=== PATIENT | female | born 1990 | race African-American/Black ===

== ENCOUNTER 2017-11-03 02:52 | Emergency (ER) | payer OTHER ==
[2017-11-03] MEDS ORDERED: SODIUM CHLORIDE 0.9% 500 ML INFUS.BAG IV ONE (03:09)
[2017-11-03 03:23] VITALS: TEMP 97.4; BMI 27.3
[2017-11-03 03:40] LABS: BASO % 0.7 % (0-2.0); EOS % 1.2 % (0-4.5); HEMATOCRIT 35.5 % (32.4-45.2); HEMOGLOBIN 11.7 GM/dL (10.7-15.3); LYMPH % 29.8 % (8-40); MCH 27.5 pg (25.7-33.7); MCHC 33.1 g/dl (32.0-36.0); MEAN CELL VOLUME 83.1 fl (80-96); NEUT % 59.3 % (42.8-82.8); PLATELET COUNT 284 K/MM3 (134-434); RBC 4.28 M/mm3 (3.60-5.2); RDW 15.1 % (11.6-15.6); WHITE BLOOD COUNT 9.8 K/mm3 (4.0-10.0)
[2017-11-03 04:37] LABS: COCAINE, UR NEGATIVE ng/ml (CUTOFF=300); METHADONE, UR NEGATIVE ng/ml (CUTOFF=300); OPIATES, URI NEGATIVE ng/ml (CUTOFF=300); PHENCYCLIDINE,URINE NEGATIVE ng/ml (CUTOFF=25); URINE AMPHETAMINES NEGATIVE ng/ml (CUTOFF=500); URINE BARBITURATES NEGATIVE ng/ml (CUTOFF=200); URINE BENZODIAZEPINES NEGATIVE ng/ml (CUTOFF=200)
[2017-11-03 04:47] LABS: ALBUMIN 3.8 g/dl (3.4-5.0); ALK PHOS 57 U/L (45-117); ANION GAP 13 (8-16); BILIRUBIN,TOTAL 0.3 mg/dL (0.2-1.0); BLOOD UREA NITROGEN 12 mg/dL (7-18); CALCIUM 8.9 mg/dL (8.5-10.1); CHLORIDE 106 mmol/L (98-107); CO2 23 mmol/L (21-32); CREATININE 1.1 mg/dL (0.55-1.02); GLUCOSE,RANDOM 107 mg/dL (74-106); POTASSIUM 3.4 mmol/L (3.5-5.1); SGOT/AST 16 U/L (15-37); SGPT/ALT 16 U/L (12-78); SODIUM 142 mmol/L (136-145); TOT PROT 7.3 g/dl (6.4-8.2)
[2017-11-03] MEDS ORDERED: MECLIZINE HCL 25 MG TABLET (FP) PO ONE (05:19)
[2017-11-03] MEDS ORDERED: POTASSIUM CHLORIDE TABS 20 MEQ TABLET.ER (FP) PO ONE (05:19)
[2017-11-03] MEDS ORDERED: FOLIC ACID INJECTION - 1 MG, THIAMINE HCL 100 MG, MULTIVIT INJECTION ADULT 10 ML in SOD... IVPB ONE (05:19)
--- NOTE | 2017-11-03 05:39 | PDOC ---
History of Present Illness - General Chief Complaint: Substance Abuse Stated Complaint: INGESTION OF FOREIGN SUBSTANCE Time Seen by Provider: 11/03/17 02:59 - History of Present Illness Initial Comments: 11/03/17 05:20 CHIEF COMPLAINT: marijuana intoxication HISTORY OF PRESENT ILLNESS: 27 yo F with no significant PMH BIBEMS s/p ingestion of marijuana brownies. Patient reports that she ate 2 brownies that her friend said "had THC in them." Per mother, patient was at home and called out that "she might need some help." Mother states when she went to the patient , the patient was responsive but drowsy "and she kept falling asleep so I called the ambulance." On arrival patient is A&O x 3 and reports "just feeling lightheaded." She denies any current nausea but does report that she " No recent travel or sick contacts. PAST MEDICAL HISTORY: Denies past medical history FAMILY HISTORY: Denies SOCIAL HISTORY: "I smoked marijuana once before, a long time ago, and ate it today." Denies tobacco, alcohol use. SURGICAL HISTORY: Denies ALLERGIES: No known drug allergies REVIEW OF SYSTEMS General/Constitutional: Denies fever or chills. Denies weakness, weight change. HEENT: Denies change in vision. Denies ear pain or discharge. Denies sore throat. Cardiovascular: Denies chest pain or shortness of breath. Respiratory: Denies cough, wheezing, or hemoptysis. Gastrointestinal: Nausea and vomiting earlier, now resolved. Denies diarrhea or constipation. Genitourinary: Denies dysuria, frequency, or change in urination. Musculoskeletal: Denies joint or muscle swelling or pain. Denies neck or back pain. Skin and breasts: Denies rash or easy bruising. Neurologic: "I feel lightheaded." Denies headache, vertigo, loss of consciousness, or loss of sensation. PHYSICAL EXAM General Appearance: Well-appearing, appropriately dressed. No apparent distress HEENT: EOMI, PERRLA, normal ENT inspection, normal voice, TMs normal, pharynx normal. No conjunctival pallor. No photophobia, scleral icterus. Respiratory/Chest: Lungs CTAB. Cardiovascular: RRR. S1, S2. Gastrointestinal/Abdominal: Normal bowel sounds. Abdomen soft, non-distended. No tenderness or rebound tenderness. No organomegaly, pulsatile mass, guarding , hernia, hepatomegaly, splenomegaly. Musculoskeletal/Extremities: Normal inspection. FROM of all extremities, normal capillary refill. Pelvis Stable. No CVA tenderness. No tenderness to extremities, pedal edema, swelling, erythema or deformity. Integumentary: Appropriate color, dry, warm. No cyanosis, erythema, jaundice or rash Neurologic: certified addiction counselor II-XII intact. Fully oriented, alert. Appropriate mood/affect. Motor strength 5/5. No appreciable EOM palsy, facial droop or sensory deficit. Past History - Past Medical History Allergies/Adverse Reactions: Allergies Allergy/AdvReac Type Severity Reaction Status Date / Time No Known Allergies Allergy Verified 11/03/17 03:00 Home Medications: Ambulatory Orders Ondansetron [Zofran *Odt*] 8 mg SL BID PRN #10 od.tablet 11/03/17 COPD: No - Immunization History Immunization Up to Date: Yes - Suicide/Smoking/Psychosocial Hx Smoking History: Never smoked Have you smoked in the past 12 months: No Information on smoking cessation initiated: No Hx Alcohol Use: No Drug/Substance Use Hx: Yes *Physical Exam - Vital Signs Last Vital Signs Temp Pulse Resp BP Pulse Ox 97.4 F L 87 14 120/70 100 11/03/17 03:03 11/03/17 03:01 11/03/17 03:01 11/03/17 03:01 11/03/17 03:01 ED Treatment Course - LABORATORY CBC & Chemistry Diagram: 11/03/17 03:34 11/03/17 04:00 - ADDITIONAL ORDERS Additional order review: Laboratory Results 11/03/17 11/03/17 11/03/17 04:00 04:00 04:00 Sodium 142 Potassium 3.4 L Chloride 106 Carbon Dioxide 23 Anion Gap 13 BUN 12 Creatinine 1.1 H Creat Clearance w eGFR > 60 Random Glucose 107 H Calcium 8.9 Total Bilirubin 0.3 AST 16 ALT 16 Alkaline Phosphatase 57 Creatine Kinase Total Protein 7.3 Albumin 3.8 Urine HCG, Qual Negative Opiates Screen Negative Methadone Screen Negative Barbiturate Screen Negative Phencyclidine Screen Negative Ur Amphetamines Screen Negative MDMA (Ecstasy) Screen Negative Benzodiazepines Screen Negative Cocaine Screen Negative U Marijuana (THC) Screen Positive 11/03/17 11/03/17 03:34 03:34 Sodium Cancelled Potassium Cancelled Chloride Cancelled Carbon Dioxide Cancelled Anion Gap Cancelled BUN Cancelled Creatinine Cancelled Creat Clearance w eGFR Cancelled Random Glucose Cancelled Calcium Cancelled Total Bilirubin Cancelled AST Cancelled ALT Cancelled Alkaline Phosphatase Cancelled Creatine Kinase Cancelled Total Protein Cancelled Albumin Cancelled Urine HCG, Qual Opiates Screen Methadone Screen Barbiturate Screen Phencyclidine Screen Ur Amphetamines Screen MDMA (Ecstasy) Screen Benzodiazepines Screen Cocaine Screen U Marijuana (THC) Screen 11/03/17 03:34 RBC 4.28 MCV 83.1 MCHC 33.1 RDW 15.1 MPV 9.0 Neutrophils % 59.3 Lymphocytes % 29.8 Monocytes % 9.0 Eosinophils % 1.2 Basophils % 0.7 - Medications Given in the ED: ED Medications Discontinued Medications Generic Name Dose Route Start Last Admin Trade Name Freq PRN Reason Stop Dose Admin Sodium Chloride 1,000 ml 11/03/17 03:09 11/03/17 03:48 Normal Saline - IV 11/03/17 03:10 1,000 ml ONCE ONE Administration Medical Decision Making - Medical Decision Making 11/03/17 05:39 27 yo F with no significant PMH BIBEMS s/p ingestion of marijuana brownies. Patient is drowsy but well appearing and A&O x 3. Clinical presentation consistent with marijuana intoxication. -CBC, CMP -Utox labs - K+ 3.4, otherwise unremarkable -IVF -Kdur -banana bag *DC/Admit/Observation/Transfer Diagnosis at time of Disposition: Marijuana intoxication - Discharge Dispostion Disposition: HOME Condition at time of disposition: Stable Admit: No - Prescriptions Prescriptions: Ondansetron [Zofran *Odt*] 8 mg SL BID PRN #10 od.tablet PRN Reason: Nausea And/Or Vomiting - Referrals Referrals: Tay Grewal MD [Staff Physician] - - Patient Instructions Additional Instructions: You were treated today for marijuana intoxication. In time the effects of the marijuana should wear off. Please stay well hydrated and follow up with your primary care doctor within the next week for continued monitoring. If you develop any shortness of breath, swelling of the throat, lips, tongue, or mouth , difficulty speaking or swallowing, chest pain, dizziness, or any new or worsening symptoms, please return to the ER. - Post Discharge Activity
[2017-11-03 07:13] VITALS: BP 115/64; PULSE 74
--- NOTE | 2017-11-03 12:05 | EKG ---
Test Reason : Blood Pressure : / mmHG Vent. Rate : 080 BPM Atrial Rate : 080 BPM P-R Int : 198 ms QRS Dur : 084 ms QT Int : 374 ms P-R-T Axes : 046 040 019 degrees QTc Int : 431 ms NORMAL SINUS RHYTHM NORMAL ECG NO PREVIOUS ECGS AVAILABLE Confirmed by DAVID BEDOLLA MD ([id number]) on 11/03/2017 12:05:34 PM Referred By: Confirmed By:DAVID BEDOLLA MD
== END 2017-11-03 07:00 | disposition home or self-care (01) ==
LOC: JER 02:52
PROC: 3E033GC Introduction of Other Therapeutic Substance into Peripheral Vein, Percutaneous Approach (ICD-10-PCS; principal; 2017-11-03)
DX: T40.7X1A Poisoning by cannabis (derivatives), accidental (unintentional), initial encounter (principal); R40.0 Somnolence; Y92.89 Other specified places as the place of occurrence of the external cause
CPT/HCPCS: 36415; 80053; 80307; 84703; 85025; 93005; 93010; 99282-25